=== PATIENT | male | born 1940 | race Two or more races ===

== ENCOUNTER 2024-09-24 12:00 | Emergency (ER) | payer OTHER ==
[~2024-09-24] VITALS: Ht 170.2 cm; Wt 75.7 kg
[2024-09-24] MEDS ORDERED: ECOTRIN81 MG PO (12:54)
[2024-09-24] MEDS ORDERED: ISOSORBIDE DINI30 MG PO (12:54)
[2024-09-24] MEDS ORDERED: PLAVIX75 MG PO (12:54)
[2024-09-24] MEDS ORDERED: LEVOXYL75 MCG PO (12:55)
[2024-09-24] MEDS ORDERED: AZOR 5-20 MG T1 EACH (12:56)
[2024-09-24] MEDS ORDERED: XIGDUO XR 10 M1 EAC1 (12:56)
[2024-09-24] MEDS ORDERED: ROSUVASTATIN CA20 MG PO (12:56)
[2024-09-24] MEDS ORDERED: TOPROL XL50 M1 PO (12:57)
[2024-09-24] MEDS ORDERED: DUTASTERIDE-TA1 EACH PO (12:57)
[2024-09-24] MEDS ORDERED: PANTOPRAZOLE SODIUM 40 MG/VIAL VIAL IV ONE (13:15)
[2024-09-24 13:51] LABS: HEMATOCRIT 44.7 % (39.0-48.0); HEMOGLOBIN 15.2 g/dL (13-16.00); MEAN CELL VOLUME 95.6 fL (80.0-100.00); MEAN CORPUSCULAR HEMOGLOBIN 32.5 pg (27.00-32.0); PLATELET COUNT 189 K/uL (150-450); RED BLOOD COUNT 4.67 M/uL (4.00-6.00); RED CELL DISTRIBUTION WIDTH 13.5 % (11.5-14.5)
[2024-09-24 14:11] LABS: INR 1.03; PARTIAL THROMBOPLASTIN TIME 26.5 SECONDS (22.0-34.0); PROTHROMBIN TIME 11.2 SECONDS (9.0-11.5)
[2024-09-24 14:26] LABS: PH,URINE 5.5 (5.0-8.0); URINE APPEARANCE Clear; URINE BILIRRUBIN Negative (NEGATIVE); URINE BLOOD Negative; URINE COLOR Yellow; URINE KETONE Negative (NEGATIVE); URINE LEUKOCYTE Negative; URINE NITRATE Negative; URINE PROTEIN Negative (NEGATIVE); URINE UROBILINOGEN 0.2 E.U./dl
[2024-09-24 14:29] LABS: URINE BACTERIA 14.6 uL (0.0-1933); URINE EPITHELIAL CELLS 2.8 uL (0.0-38.8)
[2024-09-24 14:31] LABS: ALBUMIN 3.3 gm/dL (3.4-5.0); BILIRUBIN TOTAL 0.52 mg/dL (0.3-1.2); CALCIUM 9.3 mg/dL (8.5-10.1); CREATININE SERUM 1.22 mg/dL (0.70-1.30); GFR 56.73; GLOBULINA 2.9 G/DL (2.4-3.5); POTASSIUM 5.28 mEq/L (3.5-5.1); TOTAL PROTEIN 6.2 gm/dL (6.4-8.2)
[2024-09-24 14:35] LABS: URINE GLUCOSE >=1000 MG/DL (NEGATIVE); URINE WBC 1.1 uL (0.0-23.2); ob POSITIVE (NEGATIVE)
== END 2024-09-24 17:18 | disposition home or self-care (01) ==
LOC: ER 12:01
PROVIDERS: General Practice
DX: K62.5 Hemorrhage of anus and rectum (principal); I10 Essential (primary) hypertension; E11.9 Type 2 diabetes mellitus without complications; Z79.84 Long term (current) use of oral hypoglycemic drugs
CPT/HCPCS: 36415; 74177; 96365; 99284; J3490; Q9965

== ENCOUNTER 2025-04-17 11:21 | Inpatient (IN) | payer OTHER ==
[~2025-04-17] VITALS: Ht 167.6 cm; Wt 67.6 kg
[~2025-04-17 11:21] MED LIST: AZOR 5-20 MG T1 EACH; DUTASTERIDE-TA1 EACH PO; ECOTRIN81 MG PO; ISOSORBIDE DINI30 MG PO; LEVOXYL75 MCG PO; PLAVIX75 MG PO; ROSUVASTATIN CA20 MG PO; TOPROL XL50 M1 PO; XIGDUO XR 10 M1 EAC1
--- NOTE | 2025-04-17 11:31 | NUR ---
PACIENTE MASCULINO ALERTA Y ORIENTADO X3 EN ABMULANCIA Y EN COMPANIA DE FAMILIAR QUIEN REFIERE QUE LLEVA VARIOS DODSON CON DOLOR ABDOMINAL. PACIENTE CON CA DE COLON. PACIENTE DEL DR ANN LAM.
[2025-04-17] MEDS ORDERED: DIATRIZOATE MEGLUMINE, SODIUM 30 ML BOTTLE PO ONE (11:45)
[2025-04-17] MEDS ORDERED: FAMOtidine 10 MG/ML (4ML VIAL) IV ONE (11:45)
[2025-04-17 12:38] LABS: BASO % 0.5 % (0.1-1.2); EOS # 0.09 (0.04-0.54); EOS % 1.1 % (0.7-7.0); LYMPH # 1.27 (1.18-3.74); LYMPH % 15.9 % (19.3-53.1); MEAN PLATELET VOLUME 10.40 fl (9.4-12.4); MONO # 0.44 (0.24-0.82); MONO % 5.5 % (4.7-12.5); NEUT # 6.08 (1.56-6.13); NEUT % 76.2 % (34.0-71.1); RED CELL DISTRIBUTION WIDTH 13.4 % (11.6-14.4)
[2025-04-17 13:01] LABS: ALT/SGPT 43.0 U/L (12-78); AST/SGOT 28.0 U/L (15-37); BILIRUBIN TOTAL 0.5 mg/dL (0.3-1.2); BUN CREA RATIO 13.0 (7.0-25.0); CREATININE SERUM 1.11 mg/dL (0.70-1.30); GFR 63.11; GLOBULINA 3.2 G/DL (2.4-3.5); GLUCOSE FASTING 115.0 mg/dL (65-100); OSMOLALITY SERUM 292.0 MOSM/KG (275-295)
[2025-04-17 13:02] LABS: INR 1.09
[2025-04-17 13:46] LABS: URINE APPEARANCE Clear; URINE BILIRRUBIN Negative (NEGATIVE); URINE BLOOD Negative; URINE COLOR Dark Yellow; URINE KETONE Trace (NEGATIVE); URINE LEUKOCYTE Negative; URINE NITRATE Negative; URINE PROTEIN Trace (NEGATIVE); URINE UROBILINOGEN 1.0 E.U./dl
[2025-04-17 14:02] LABS: URINE GLUCOSE >=1000 MG/DL (NEGATIVE)
[2025-04-17 14:04] LABS: URINE EPITHELIAL CELLS 0-4 /HPF; URINE RBC 0-3 /HPF; URINE WBC 0-2 /hpf
[2025-04-17 14:05] LABS: URINE BACTERIA MODERATE; URINE CRYSTALS FEW /HPF; URINE MUCUS SCANT
--- NOTE | 2025-04-17 14:40 | NUR ---
PACIENTE EVALUADA POR MD NAJERA ORDENA TRATAMIENTO MEDICO, SE LE ORIENTA A PACIENTE SOBRE EL MISMO Y REFIERE ENTENDER, SE LE COLECTAN MUESTRAS DE LABORTORIO Y SE CANALIZA BAJO MEDIDAS ASEPTICAS. SE LE COLOCAN IV FLUIDS AWILDA ORDEN MEDICA. PENDIENTE ESTUDIO DE CT
[2025-04-17] MEDS ORDERED: ACETAMINOPHEN 325 MG TABLET PO PRN (17:15)
[2025-04-17] MEDS ORDERED: ONDANSETRON HCL 4 MG in 0.9 % SODIUM CHLORIDE 50 ML IV PRN (17:15)
[2025-04-17] MEDS ORDERED: hydrALAZINE HCL 20 MG VIAL IV PRN (18:30)
[2025-04-17] MEDS ORDERED: INSULIN LISPRO 1,000 UNIT/10 ML UNITS SUBCUTANEO PRN (18:30)
[2025-04-17] MEDS ORDERED: DEXTROSE 50 % IN WATER 0.5 G/ML DISP.SYRIN IV PRN (18:30)
[2025-04-17 19:50] VITALS: BP 130/90
[2025-04-17] MEDS ORDERED: MORPHINE SULFATE 2 MG/ML CARTRIDGE IV PRN (22:45)
[2025-04-17 23:00] VITALS: BP 162/80; O2SAT 98
[2025-04-18 08:00] VITALS: BP 176/81; O2SAT 95
[2025-04-18] MEDS ORDERED: PANTOPRAZOLE SODIUM 40 MG/VIAL VIAL IV SCH (09:00)
[2025-04-18] MEDS ORDERED: 0.9 % SODIUM CHLORIDE 1,000 ML IV SCH (09:00)
[2025-04-18] MEDS ORDERED: ACETAMINOPHEN 500 MG GEL..CAP PO PRN (13:30)
[2025-04-18] MEDS ORDERED: AA 2.36%/D6.8W/FAT/E-LYTES NO9 1,440 ML IV SCH (17:00)
[2025-04-18] MEDS ORDERED: LEVOTHYROXINE SODIUM 100MCG/ML REDILUIDO IV SCH (17:00)
[2025-04-18] MEDS ORDERED: ENOXAPARIN SODIUM 30 MG/0.3 ML SYRINGE SUBCUTANEO SCH (17:00)
[2025-04-18] MEDS ORDERED: NITROGLYCERIN 0.4 MG/HR PATCH.TD24 TD SCH (17:00)
[2025-04-18 17:47] VITALS: BP 148/81; O2SAT 97
[2025-04-18] MEDS ORDERED: ENALAPRILAT DIHYDRATE 1.25 MG/ML VIAL IV SCH (18:00)
[2025-04-18 19:26] LABS: BUN CREA RATIO 16.0 (7.0-25.0); CHOL HDL RATIO 2.2 (0-5.0); CREATININE SERUM 0.76 mg/dL (0.70-1.30); GFR 97.71; GLUCOSE FASTING 58.0 mg/dL (65-100); HDL 49.0 mg/dl (40-60); LDL 35.0 mg/dl (0-130); OSMOLALITY SERUM 286.0 MOSM/KG (275-295); VLDL 21.0 (0-39)
[2025-04-19 01:09] VITALS: BP 202/101; O2SAT 99
[2025-04-19 07:54] LABS: BASO % 0.4 % (0.1-1.2); EOS # 0.15 (0.04-0.54); EOS % 1.6 % (0.7-7.0); LYMPH # 1.57 (1.18-3.74); LYMPH % 17.0 % (19.3-53.1); MEAN PLATELET VOLUME 10.80 fl (9.4-12.4); MONO # 0.74 (0.24-0.82); MONO % 8.0 % (4.7-12.5); NEUT # 6.71 (1.56-6.13); NEUT % 72.6 % (34.0-71.1); RED CELL DISTRIBUTION WIDTH 13.3 % (11.6-14.4)
[2025-04-19 07:56] LABS: BUN CREA RATIO 14.0 (7.0-25.0); CREATININE SERUM 0.81 mg/dL (0.70-1.30); GFR 90.78; GLUCOSE FASTING 96.0 mg/dL (65-100); OSMOLALITY SERUM 286.0 MOSM/KG (275-295)
[2025-04-19 09:35] VITALS: BP 186/98; O2SAT 97
[2025-04-19] MEDS ORDERED: hydrALAZINE HCL 20 MG VIAL IV PRN (11:15)
[2025-04-19] MEDS ORDERED: RINGERS SOLUTION,LACTATED 1,000 ML IV SCH (11:15)
[2025-04-19] MEDS ORDERED: ENALAPRILAT DIHYDRATE 2.5 MG/2 ML VIAL IV SCH (12:00)
[2025-04-19 13:38] VITALS: BP 148/75
[2025-04-19 16:57] VITALS: BP 146/78; O2SAT 95
[2025-04-19] MEDS ORDERED: LABETALOL HCL 100 MG/20 ML ML IV SCH (17:00)
[2025-04-20 00:30] VITALS: BP 113/62; O2SAT 96
[2025-04-20 08:36] VITALS: BP 165/80; O2SAT 95
[2025-04-20 10:24] VITALS: BP 161/79
[2025-04-20 12:38] VITALS: BP 138/75
[2025-04-20 16:00] VITALS: BP 135/70; O2SAT 95
[2025-04-21 01:06] VITALS: BP 149/78; O2SAT 96
[2025-04-21 06:59] LABS: BASO % 0.2 % (0.1-1.2); EOS # 0.09 (0.04-0.54); EOS % 0.9 % (0.7-7.0); LYMPH # 1.17 (1.18-3.74); LYMPH % 11.7 % (19.3-53.1); MEAN PLATELET VOLUME 11.20 fl (9.4-12.4); MONO # 0.97 (0.24-0.82); MONO % 9.7 % (4.7-12.5); NEUT # 7.71 (1.56-6.13); NEUT % 76.7 % (34.0-71.1); RED CELL DISTRIBUTION WIDTH 13.8 % (11.6-14.4)
[2025-04-21 07:24] LABS: INR 1.05
[2025-04-21 07:38] LABS: ALT/SGPT 23.0 U/L (12-78); AST/SGOT 15.0 U/L (15-37); BILIRUBIN TOTAL 0.68 mg/dL (0.3-1.2); BILIRUBIN,CONJUGATED 0.22 mg/dL (0.0-0.2); BUN CREA RATIO 14.0 (7.0-25.0); CHOL HDL RATIO 2.4 (0-5.0); CREATININE SERUM 0.7 mg/dL (0.70-1.30); GFR 107.44; GLOBULINA 2.6 G/DL (2.4-3.5); GLUCOSE FASTING 114.0 mg/dL (65-100); HDL 39.0 mg/dl (40-60); LDL 31.0 mg/dl (0-130); OSMOLALITY SERUM 287.0 MOSM/KG (275-295); VLDL 22.0 (0-39)
[2025-04-21] MEDS ORDERED: POTASSIUM CHLORIDE IN WATER 100 ML IV SCH (09:00)
[2025-04-21 17:37] VITALS: BP 167/75; O2SAT 96
[2025-04-22 02:05] VITALS: BP 136/63; O2SAT 96
[2025-04-22 16:24] VITALS: BP 156/80; O2SAT 97
[2025-04-22] MEDS ORDERED: PANTOPRAZOLE SODIUM 40 MG/VIAL VIAL IV SCH (17:00)
[2025-04-22] MEDS ORDERED: FAMOTIDINE/PF 20 MG/2 ML VIAL IV NR (17:15)
[2025-04-23 00:31] VITALS: BP 136/77; O2SAT 96
[2025-04-23 08:00] VITALS: BP 140/69; O2SAT 96
[2025-04-23] MEDS ORDERED: FAMOTIDINE/PF 20 MG/2 ML VIAL IV SCH (09:00)
[2025-04-23 16:45] VITALS: BP 147/72; O2SAT 98
[2025-04-23 18:31] LABS: INR 1.03
[2025-04-23 18:37] LABS: ALT/SGPT 23.0 U/L (12-78); AST/SGOT 16.0 U/L (15-37); BILIRUBIN TOTAL 0.78 mg/dL (0.3-1.2); BUN CREA RATIO 14.0 (7.0-25.0); CREATININE SERUM 0.73 mg/dL (0.70-1.30); GFR 102.36; GLOBULINA 3.0 G/DL (2.4-3.5); GLUCOSE FASTING 126.0 mg/dL (65-100); OSMOLALITY SERUM 286.0 MOSM/KG (275-295)
[2025-04-23 21:42] LABS: BASO % 0.5 % (0.1-1.2); EOS # 0.07 (0.04-0.54); EOS % 1.1 % (0.7-7.0); LYMPH # 0.64 (1.18-3.74); LYMPH % 10.4 % (19.3-53.1); MEAN PLATELET VOLUME 10.50 fl (9.4-12.4); MONO # 0.51 (0.24-0.82); MONO % 8.3 % (4.7-12.5); NEUT # 4.85 (1.56-6.13); NEUT % 79.0 % (34.0-71.1); RED CELL DISTRIBUTION WIDTH 13.5 % (11.6-14.4)
[2025-04-23 22:05] LABS: ERYTHROCYTE SEDIMENTATION RATE 53 mm/hr (0-20)
[2025-04-24 00:25] VITALS: BP 190/70; O2SAT 96
[2025-04-24 05:42] VITALS: BP 118/60
[2025-04-24 10:38] VITALS: BP 110/65; O2SAT 95
[2025-04-24] MEDS ORDERED: VANCOMYCIN HCL 1,000 MG VIAL ONE (15:01)
[2025-04-24] MEDS ORDERED: ANIDULAFUNGIN 100 MG VIAL IV NR (15:30)
[2025-04-24] MEDS ORDERED: AA 5 %/CALCIUM/LYTES/DEXT 20 % 2,000 ML CENTRAL SCH (17:00)
[2025-04-24] MEDS ORDERED: VANCOMYCIN HCL 1,000 MG VIAL IV SCH (17:00)
[2025-04-24] MEDS ORDERED: MEROPENEM 500 MG/VIAL VIAL IV SCH (18:00)
[2025-04-24 18:01] VITALS: BP 97/62; O2SAT 97
[2025-04-24] MEDS ORDERED: FAT EMULSIONS 250 ML IV SCH (21:00)
[2025-04-24 22:26] LABS: URINE APPEARANCE Turbid; URINE BILIRRUBIN Small (NEGATIVE); URINE BLOOD Large; URINE COLOR Orange; URINE KETONE Negative (NEGATIVE); URINE LEUKOCYTE Small; URINE NITRATE Negative; URINE UROBILINOGEN 1.0 E.U./dl
[2025-04-24 22:32] LABS: URINE BACTERIA 480.0 uL (0.0-1933); URINE EPITHELIAL CELLS 56.9 uL (0.0-38.8); URINE WBC 57.2 uL (0.0-23.2)
[2025-04-24 22:46] LABS: URINE CAST > 21.83 uL (0.0-1.40); URINE GLUCOSE >=1000 MG/DL (NEGATIVE); URINE PROTEIN 100 (NEGATIVE)
[2025-04-25 00:54] VITALS: BP 169/73; O2SAT 100
[2025-04-25 08:00] VITALS: BP 119/58; O2SAT 96
[2025-04-25 08:56] LABS: ALT/SGPT 25.0 U/L (12-78); AST/SGOT 24.0 U/L (15-37); BILIRUBIN TOTAL 0.72 mg/dL (0.3-1.2); BUN CREA RATIO 27.0 (7.0-25.0); CREATININE SERUM 1.0 mg/dL (0.70-1.30); GFR 71.19; GLOBULINA 2.9 G/DL (2.4-3.5); GLUCOSE FASTING 175.0 mg/dL (65-100); OSMOLALITY SERUM 289.0 MOSM/KG (275-295)
[2025-04-25] MEDS ORDERED: ANIDULAFUNGIN 100 MG VIAL IV SCH (12:00)
[2025-04-25 13:14] LABS: BASO % 0.2 % (0.1-1.2); EOS # 0.06 (0.04-0.54); EOS % 0.5 % (0.7-7.0); LYMPH # 0.79 (1.18-3.74); LYMPH % 6.6 % (19.3-53.1); MEAN PLATELET VOLUME 11.00 fl (9.4-12.4); MONO # 1.21 (0.24-0.82); MONO % 10.2 % (4.7-12.5); NEUT # 9.67 (1.56-6.13); NEUT % 81.2 % (34.0-71.1); RED CELL DISTRIBUTION WIDTH 13.9 % (11.6-14.4)
[2025-04-25] MEDS ORDERED: VANCOMYCIN HCL 1,000 MG VIAL ONE (14:29)
[2025-04-25 14:50] LABS: BAND MAN 8.0 %; LYMPHOCYTE MAN 6.0 %; NEUTROPHILS MAN 85.0 %
[2025-04-25 16:00] VITALS: BP 144/76; O2SAT 98
[2025-04-26 00:30] VITALS: BP 139/76; O2SAT 95
[2025-04-26 08:15] VITALS: BP 165/85; O2SAT 99
[2025-04-26] MEDS ORDERED: fentaNYL 50 MCG PATCH.TD72 TD SCH (11:45)
[2025-04-26 12:20] VITALS: BP 153/80
[2025-04-26] MEDS ORDERED: METHYLPREDNISOLONE SOD SUCC 40 MG VIAL IV NR (13:30)
[2025-04-26] MEDS ORDERED: LEVALBUTEROL HCL 0.63 MG/3 ML SOLUTION IH SCH (14:00)
[2025-04-26] MEDS ORDERED: VANCOMYCIN HCL 1,000 MG VIAL ONE (14:39)
[2025-04-26 16:00] VITALS: BP 150/72; O2SAT 97
[2025-04-26] MEDS ORDERED: METHYLPREDNISOLONE SOD SUCC 40 MG VIAL IV SCH (17:00)
[2025-04-27 01:19] VITALS: BP 151/77; O2SAT 98
[2025-04-27 08:11] VITALS: BP 168/84; O2SAT 99
[2025-04-27 08:15] LABS: BASO % 0.3 % (0.1-1.2); EOS # 0.00 (0.04-0.54); EOS % 0.0 % (0.7-7.0); LYMPH # 0.88 (1.18-3.74); LYMPH % 7.3 % (19.3-53.1); MEAN PLATELET VOLUME 11.60 fl (9.4-12.4); MONO # 0.87 (0.24-0.82); MONO % 7.3 % (4.7-12.5); NEUT # 9.88 (1.56-6.13); NEUT % 82.4 % (34.0-71.1); RED CELL DISTRIBUTION WIDTH 13.5 % (11.6-14.4)
[2025-04-27 08:53] LABS: ALT/SGPT 19.0 U/L (12-78); AST/SGOT 14.0 U/L (15-37); BILIRUBIN TOTAL 0.42 mg/dL (0.3-1.2); BUN CREA RATIO 27.0 (7.0-25.0); CREATININE SERUM 0.6 mg/dL (0.70-1.30); GFR 128.36; GLOBULINA 2.9 G/DL (2.4-3.5); GLUCOSE FASTING 191.0 mg/dL (65-100); OSMOLALITY SERUM 293.0 MOSM/KG (275-295)
[2025-04-27 12:00] VITALS: BP 155/81
[2025-04-27] MEDS ORDERED: VANCOMYCIN HCL 1,000 MG VIAL ONE (15:31)
[2025-04-27 16:00] VITALS: BP 160/69; O2SAT 100
[2025-04-28 00:26] VITALS: BP 150/83; O2SAT 99
[2025-04-28 07:13] LABS: BASO % 0.4 % (0.1-1.2); EOS # 0.11 (0.04-0.54); EOS % 0.9 % (0.7-7.0); LYMPH # 1.31 (1.18-3.74); LYMPH % 10.6 % (19.3-53.1); MEAN PLATELET VOLUME 11.10 fl (9.4-12.4); MONO # 1.21 (0.24-0.82); MONO % 9.8 % (4.7-12.5); NEUT # 9.38 (1.56-6.13); NEUT % 76.2 % (34.0-71.1); RED CELL DISTRIBUTION WIDTH 13.8 % (11.6-14.4)
[2025-04-28 07:44] LABS: INR 1.03
[2025-04-28 07:47] LABS: ALT/SGPT 20.0 U/L (12-78); AST/SGOT 16.0 U/L (15-37); BILIRUBIN TOTAL 0.54 mg/dL (0.3-1.2); BILIRUBIN,CONJUGATED 0.12 mg/dL (0.0-0.2); BUN CREA RATIO 33.0 (7.0-25.0); CHOL HDL RATIO 3.9 (0-5.0); CREATININE SERUM 0.54 mg/dL (0.70-1.30); GFR 144.95; GLUCOSE FASTING 101.0 mg/dL (65-100); HDL 24.0 mg/dl (40-60); LDL 47.0 mg/dl (0-130); OSMOLALITY SERUM 293.0 MOSM/KG (275-295); VLDL 22.0 (0-39)
[2025-04-28 07:55] LABS: UREA CLEARANCE 44.7 ML/MIN
[2025-04-28 08:00] VITALS: BP 177/80; O2SAT 100
[2025-04-28 11:00] VITALS: BP 130/60
[2025-04-28] MEDS ORDERED: SODIUM CHLORIDE 0.45 % 1,000 ML IV SCH (12:00)
[2025-04-28] MEDS ORDERED: VANCOMYCIN HCL 1,000 MG VIAL ONE (14:28)
[2025-04-28 17:21] VITALS: BP 128/79; BP 133/64; O2SAT 97; O2SAT 99
[2025-04-29 02:04] VITALS: BP 158/66; O2SAT 100
[2025-04-29 08:00] VITALS: BP 122/69; O2SAT 98
[2025-04-29] MEDS ORDERED: MORPHINE SULFATE 4 MG/ML CARTRIDGE IV PRN (11:00)
[2025-04-29] MEDS ORDERED: fentaNYL 50 MCG PATCH.TD72 TD SCH (12:00)
[2025-04-29] MEDS ORDERED: VANCOMYCIN HCL 5 MG/ML REDILUIDO IV NR (12:00)
[2025-04-29 16:00] VITALS: BP 134/74; O2SAT 97
[2025-04-29] MEDS ORDERED: VANCOMYCIN HCL 5 MG/ML REDILUIDO IV SCH ×2 (17:00→21:00)
[2025-04-29] MEDS ORDERED: CEFAZOLIN SODIUM 2,000 MG in 0.9 % SODIUM CHLORIDE 100 ML IV SCH (17:00)
[2025-04-29] MEDS ORDERED: CIPROFLOXACIN IN 5 % DEXTROSE 400 MG/200 ML PIGGYBAG IV SCH (21:00)
[2025-04-29 23:45] VITALS: BP 105/51; O2SAT 96
[2025-04-30 08:00] VITALS: BP 154/78; O2SAT 99
[2025-04-30] MEDS ORDERED: METOPROLOL SUCCINATE 50 MG TAB.SR.24H PO SCH (09:27)
[2025-04-30] MEDS ORDERED: AMIODARONE HCL 200 MG TABLET PO SCH (09:28)
[2025-04-30] MEDS ORDERED: ISOSORBIDE MONONITRATE 30 MG TABLET PO SCH (09:29)
[2025-04-30] MEDS ORDERED: LACTULOSE 20 G/30 ML BLIST.PACK PO SCH (09:30)
[2025-04-30] MEDS ORDERED: LOSARTAN POTASSIUM 50 MG TABLET PO SCH (12:00)
[2025-04-30 16:00] VITALS: BP 120/59; O2SAT 99
[2025-05-01 00:30] VITALS: BP 142/63; O2SAT 97
[2025-05-01] MEDS ORDERED: LEVOTHYROXINE SODIUM 100 MCG TABLET PO SCH (06:00)
[2025-05-01 08:51] VITALS: BP 157/75; O2SAT 100
[2025-05-01 16:10] VITALS: BP 148/79; O2SAT 100
[2025-05-02 00:28] VITALS: BP 199/81; O2SAT 95
[2025-05-02 01:31] VITALS: BP 166/69
[2025-05-02 08:23] VITALS: BP 164/84; O2SAT 97
[2025-05-02 15:35] VITALS: BP 170/73; O2SAT 98
[2025-05-02 18:02] VITALS: BP 134/67
[2025-05-02 21:43] LABS: BASO % 0.4 % (0.1-1.2); EOS # 0.05 (0.04-0.54); EOS % 0.5 % (0.7-7.0); LYMPH # 1.21 (1.18-3.74); LYMPH % 11.2 % (19.3-53.1); MEAN PLATELET VOLUME 10.50 fl (9.4-12.4); MONO # 0.88 (0.24-0.82); MONO % 8.1 % (4.7-12.5); NEUT # 8.15 (1.56-6.13); NEUT % 75.1 % (34.0-71.1); RED CELL DISTRIBUTION WIDTH 13.9 % (11.6-14.4)
[2025-05-02 22:02] LABS: BAND MAN 1.0 %; LYMPHOCYTE MAN 15.0 %; MONOCYTE MAN 3.0 %; MYELOCYTE 3.0 %; NEUTROPHILS MAN 78.0 %
[2025-05-02 22:04] LABS: URINE APPEARANCE Clear; URINE BILIRRUBIN Negative (NEGATIVE); URINE BLOOD Negative; URINE COLOR Yellow; URINE GLUCOSE Negative (NEGATIVE); URINE KETONE 15 (NEGATIVE); URINE LEUKOCYTE Negative; URINE NITRATE Negative; URINE PROTEIN Trace (NEGATIVE); URINE UROBILINOGEN 0.2 E.U./dl
[2025-05-02 22:07] LABS: URINE BACTERIA 13.1 uL (0.0-1933); URINE EPITHELIAL CELLS 2.6 uL (0.0-38.8); URINE RBC 34.4 uL (0.0-20.8); URINE WBC 8.9 uL (0.0-23.2)
[2025-05-02 22:09] LABS: URINE CAST 0.58 uL (0.0-1.40)
[2025-05-02 22:31] LABS: ALT/SGPT 18.0 U/L (12-78); AST/SGOT 26.0 U/L (15-37); BILIRUBIN TOTAL 0.62 mg/dL (0.3-1.2); BUN CREA RATIO 16.0 (7.0-25.0); CREATININE SERUM 0.69 mg/dL (0.70-1.30); GFR 109.24; GLOBULINA 2.8 G/DL (2.4-3.5); GLUCOSE FASTING 112.0 mg/dL (65-100); OSMOLALITY SERUM 285.0 MOSM/KG (275-295)
[2025-05-02] MEDS ORDERED: POTASSIUM PHOS,M-BASIC-D-BASIC 15 MM in 0.9 % SODIUM CHLORIDE 250 ML IV ONE (22:45)
[2025-05-03 00:29] VITALS: BP 175/83; O2SAT 98
[2025-05-03 08:00] VITALS: BP 180/80; O2SAT 95
[2025-05-03 15:59] VITALS: BP 153/67; O2SAT 99
[2025-05-03] MEDS ORDERED: fentaNYL 50 MCG PATCH.TD72 TD SCH (17:00)
[2025-05-03] MEDS ORDERED: AA 5 %/CALCIUM/LYTES/DEXT 20 % 2,000 ML CENTRAL SCH (17:00)
[2025-05-04 00:08] VITALS: BP 182/73; O2SAT 99
[2025-05-04 01:20] VITALS: BP 157/75
[2025-05-04 08:30] VITALS: BP 190/93; O2SAT 99
[2025-05-04 16:00] VITALS: BP 171/69; O2SAT 98
[2025-05-05 00:13] VITALS: BP 186/78; O2SAT 98
[2025-05-05 08:34] VITALS: BP 190/73; O2SAT 99
[2025-05-05] MEDS ORDERED: FENTANYL TD SCH (09:30)
[2025-05-05] MEDS ORDERED: LOSARTAN POTASSIUM 100 MG TABLET PO SCH (12:00)
[2025-05-05 17:00] VITALS: BP 133/63; O2SAT 97
[2025-05-05] MEDS ORDERED: METOCLOPRAMIDE HCL 10 MG in DEXTROSE 5 % IN WATER 50 ML IV SCH (17:00)
[2025-05-06 00:30] VITALS: BP 142/64; O2SAT 97
[2025-05-06 08:40] VITALS: BP 157/69; O2SAT 99
[2025-05-06 12:21] LABS: BASO % 0.4 % (0.1-1.2); EOS # 0.03 (0.04-0.54); EOS % 0.3 % (0.7-7.0); LYMPH # 1.31 (1.18-3.74); LYMPH % 12.1 % (19.3-53.1); MEAN PLATELET VOLUME 10.60 fl (9.4-12.4); MONO # 0.78 (0.24-0.82); MONO % 7.2 % (4.7-12.5); NEUT # 8.60 (1.56-6.13); NEUT % 79.0 % (34.0-71.1); RED CELL DISTRIBUTION WIDTH 14.3 % (11.6-14.4)
[2025-05-06 12:35] LABS: INR 1.11
[2025-05-06 12:41] LABS: ALT/SGPT 9.0 U/L (12-78); AST/SGOT 20.0 U/L (15-37); BILIRUBIN TOTAL 0.5 mg/dL (0.3-1.2); BUN CREA RATIO 10.0 (7.0-25.0); CREATININE SERUM 0.78 mg/dL (0.70-1.30); GFR 94.83; GLOBULINA 3.2 G/DL (2.4-3.5); GLUCOSE FASTING 95.0 mg/dL (65-100); OSMOLALITY SERUM 291.0 MOSM/KG (275-295)
[2025-05-06 16:53] VITALS: BP 147/73; O2SAT 98
[2025-05-07 00:30] VITALS: BP 153/76; O2SAT 96
[2025-05-07 08:43] VITALS: BP 186/84; O2SAT 99
[2025-05-07 15:57] VITALS: BP 147/72; O2SAT 99
[2025-05-08 02:10] VITALS: BP 190/79; O2SAT 95
[2025-05-08 08:00] VITALS: BP 180/80; O2SAT 99
[2025-05-08] MEDS ORDERED: FENTANYL TD SCH (10:30)
[2025-05-08 16:00] VITALS: BP 132/67; O2SAT 99
[2025-05-09] VITALS: BP 146/77; O2SAT 96
[2025-05-09 11:16] VITALS: BP 177/79; O2SAT 95
[2025-05-09 16:24] VITALS: BP 132/67; O2SAT 98
[2025-05-10 00:52] VITALS: BP 153/68; O2SAT 97
[2025-05-10 09:07] VITALS: BP 191/69; O2SAT 97
[2025-05-10 13:38] LABS: BASO % 0.3 % (0.1-1.2); EOS # 0.06 (0.04-0.54); EOS % 0.6 % (0.7-7.0); LYMPH # 1.33 (1.18-3.74); LYMPH % 12.4 % (19.3-53.1); MEAN PLATELET VOLUME 10.50 fl (9.4-12.4); MONO # 0.66 (0.24-0.82); MONO % 6.1 % (4.7-12.5); NEUT # 8.62 (1.56-6.13); NEUT % 80.2 % (34.0-71.1); RED CELL DISTRIBUTION WIDTH 15.2 % (11.6-14.4)
[2025-05-10 13:57] LABS: AST/SGOT 13 U/L (15-37); BILIRUBIN TOTAL 0.50 mg/dL (0.3-1.2); BUN CREA RATIO 11 (7.0-25.0); CREATININE SERUM 0.56 mg/dL (0.70-1.30); GFR 139.00; GLOBULINA 2.5 G/DL (2.4-3.5); GLUCOSE FASTING 105 mg/dL (65-100); OSMOLALITY SERUM 290 MOSM/KG (275-295)
[2025-05-10 14:00] LABS: ALT/SGPT < 6 U/L (12-78)
[2025-05-10 17:23] VITALS: BP 115/70; O2SAT 98
[2025-05-10] MEDS ORDERED: fentaNYL 50 MCG PATCH.TD72 TD SCH (20:45)
[2025-05-10 23:58] VITALS: BP 152/71; O2SAT 99
[2025-05-11 09:21] VITALS: BP 175/92; O2SAT 96
[2025-05-11] MEDS ORDERED: fentaNYL 50 MCG PATCH.TD72 TD SCH (12:00)
[2025-05-11] MEDS ORDERED: POTASSIUM CHLORIDE IN WATER 40 MEQ/100 ML PIGGYBAG IV SCH (13:00)
[2025-05-11 17:02] VITALS: BP 147/72; O2SAT 99
[2025-05-12 00:44] VITALS: BP 147/69; O2SAT 98
[2025-05-12 08:00] VITALS: BP 160/90; O2SAT 98
[2025-05-12 13:43] VITALS: BP 135/69; O2SAT 98
[2025-05-12 16:45] VITALS: BP 190/86; O2SAT 99
[2025-05-13 01:06] VITALS: BP 178/82; O2SAT 95
[2025-05-13 07:01] LABS: BASO % 0.3 % (0.1-1.2); EOS # 0.00 (0.04-0.54); EOS % 0.0 % (0.7-7.0); LYMPH # 1.08 (1.18-3.74); LYMPH % 7.9 % (19.3-53.1); MEAN PLATELET VOLUME 10.80 fl (9.4-12.4); MONO # 0.68 (0.24-0.82); MONO % 5.0 % (4.7-12.5); NEUT # 11.82 (1.56-6.13); NEUT % 86.4 % (34.0-71.1); RED CELL DISTRIBUTION WIDTH 15.9 % (11.6-14.4)
[2025-05-13 08:00] VITALS: BP 131/74; O2SAT 98
[2025-05-13 08:04] LABS: AST/SGOT 15 U/L (15-37); BILIRUBIN TOTAL 0.57 mg/dL (0.3-1.2); BUN CREA RATIO 10 (7.0-25.0); CREATININE SERUM 0.60 mg/dL (0.70-1.30); GFR 128.36; GLOBULINA 2.7 G/DL (2.4-3.5); GLUCOSE FASTING 104 mg/dL (65-100); OSMOLALITY SERUM 287 MOSM/KG (275-295)
[2025-05-13 08:05] LABS: ALT/SGPT < 6 U/L (12-78)
[2025-05-13 16:10] VITALS: BP 141/81; O2SAT 100
[2025-05-14 00:30] VITALS: BP 143/76; O2SAT 97
[2025-05-14 09:35] VITALS: BP 162/88; O2SAT 95
[2025-05-14 16:00] VITALS: BP 157/83; O2SAT 100
[2025-05-15 01:22] VITALS: BP 143/77; O2SAT 95
[2025-05-15 08:00] VITALS: BP 133/80; O2SAT 94
[2025-05-15 16:00] VITALS: BP 135/74; O2SAT 96
[2025-05-16] VITALS: BP 137/66; O2SAT 99
[2025-05-16 08:00] VITALS: BP 170/83; O2SAT 98
[2025-05-16 16:30] VITALS: BP 107/73; O2SAT 98
[2025-05-17 00:43] VITALS: BP 152/69; O2SAT 97
[2025-05-17 09:02] VITALS: BP 138/77; O2SAT 95
[2025-05-17 16:48] VITALS: BP 107/79; O2SAT 93
[2025-05-18 01:07] VITALS: BP 152/64; O2SAT 97
[2025-05-18 08:00] VITALS: BP 207/103; O2SAT 96
[2025-05-18 13:00] VITALS: BP 113/69
[2025-05-18 16:40] VITALS: BP 119/80; O2SAT 97
[2025-05-19 00:30] VITALS: BP 142/63; O2SAT 96
[2025-05-19 08:00] VITALS: BP 177/89; O2SAT 99
[2025-05-19 16:00] VITALS: BP 158/74; O2SAT 99
[2025-05-20] VITALS: BP 181/77; O2SAT 96
[2025-05-20 08:33] VITALS: BP 182/75; O2SAT 100
[2025-05-20] MEDS ORDERED: ISOSORBIDE MONO30 MG PO (10:16)
[2025-05-20] MEDS ORDERED: SYNTHROID100 MCG PO (10:16)
[2025-05-20] MEDS ORDERED: FENTANYL1 EAC3 TD (10:16)
[2025-05-20] MEDS ORDERED: LASIX20 MG PO (10:16)
[2025-05-20] MEDS ORDERED: TOPROL XL50 M1 PO (10:16)
[2025-05-20] MEDS ORDERED: AMIODARONE HCL200 MG PO (10:16)
[2025-05-20] MEDS ORDERED: LOSARTAN POTAS100 MG PO (10:16)
[2025-05-20 17:43] VITALS: BP 133/81; O2SAT 96
== END 2025-05-20 17:54 | disposition home or self-care (01) | DRG 388 ==
LOC: ER 11:21 → SURH 19:12 → SEC-K 19:12 → SURH 04-18 02:06 → O/R 05-08 11:51 → SURH 05-08 11:52
PROVIDERS: General Practice; Internal Medicine; Internal Medicine Infectious Disease; ADMIT Internal Medicine; ATTEND Internal Medicine
PROC: BW21YZZ Computerized Tomography (CT Scan) of Abdomen and Pelvis using Other Contrast (ICD-10-PCS; 2025-04-17)
PROC: 0D9670Z Drainage of Stomach with Drainage Device, Via Natural or Artificial Opening (ICD-10-PCS; principal; 2025-04-18)
PROC: 4A12X4Z Monitoring of Cardiac Electrical Activity, External Approach (ICD-10-PCS; 2025-04-19)
PROC: 02HV33Z Insertion of Infusion Device into Superior Vena Cava, Percutaneous Approach (ICD-10-PCS; 2025-04-21)
PROC: BW21ZZZ Computerized Tomography (CT Scan) of Abdomen and Pelvis (ICD-10-PCS; 2025-04-22)
PROC: B24BYZZ Ultrasonography of Heart with Aorta using Other Contrast (ICD-10-PCS; 2025-04-28)
PROC: BW21ZZZ Computerized Tomography (CT Scan) of Abdomen and Pelvis (ICD-10-PCS; 2025-04-29)
PROC: B54MZZZ Ultrasonography of Right Upper Extremity Veins (ICD-10-PCS; 2025-05-06)
DX: K56.600 Partial intestinal obstruction, unspecified as to cause (principal); A41.01 Sepsis due to Methicillin susceptible Staphylococcus aureus; A41.9 Sepsis, unspecified organism; J18.9 Pneumonia, unspecified organism; J69.0 Pneumonitis due to inhalation of food and vomit; J90 Pleural effusion, not elsewhere classified; J98.11 Atelectasis; C18.9 Malignant neoplasm of colon, unspecified; C79.9 Secondary malignant neoplasm of unspecified site; I82.A11 Acute embolism and thrombosis of right axillary vein; I10 Essential (primary) hypertension; E11.9 Type 2 diabetes mellitus without complications; Z79.4 Long term (current) use of insulin; E87.6 Hypokalemia; D72.829 Elevated white blood cell count, unspecified; K56.0 Paralytic ileus; B95.61 Methicillin susceptible Staphylococcus aureus infection as the cause of diseases classified elsewhere